=== PATIENT | male | born 1950 | race Caucasian/White ===

== ENCOUNTER 2019-06-30 08:41 | Day surgery (SDC) | payer MEDICARE, OTHER, MEDICAID ==
[2019-06-30] MEDS ORDERED: PROPOFOL 60 ML (10:42)
[2019-06-30] MEDS ORDERED: ACETAMINOPHEN 500 MG TAB (11:35)
[2019-06-30] MEDS: ACETAMINOPHEN 500 MG TAB PO (11:41)
== END 2019-06-30 12:44 | disposition home or self-care (01) ==
LOC: GIL 08:41
DX: D50.9 Iron deficiency anemia, unspecified (principal); K64.8 Other hemorrhoids; K21.0 Gastro-esophageal reflux disease with esophagitis; K29.60 Other gastritis without bleeding; E78.5 Hyperlipidemia, unspecified; Z79.82 Long term (current) use of aspirin
CPT/HCPCS: 43239; 88305